=== PATIENT | male | born 1955 | race Caucasian/White ===

== ENCOUNTER 2017-08-14 18:44 | Emergency (ER) | payer BC, OTHER ==
[~2017-08-14] VITALS: Ht 177.8 cm; Wt 82.0 kg
[2017-08-14 18:49] VITALS: Ht 177.8 cm; Wt 82.0 kg
[2017-08-14] MEDS ORDERED: NITROGLYCERIN 2% 1 GM OINT PKT TD STA (19:23)
[2017-08-14] MEDS ORDERED: ASPIRIN 81 MG TAB PO STA (19:23)
[2017-08-14] MEDS ORDERED: NITROGLYCERIN (SL) 0.4 MG TAB SL PRN (19:30)
[2017-08-14 19:40] LABS: BASOPHILS % 0.4 % (0.0-2.0); EOSINOPHILS # 0.3 10^3/ul (0.0-0.5); EOSINOPHILS % 4.7 % (0.0-7.0); HEMATOCRIT 41.5 % (42.0-52.0); HEMOGLOBIN 14.2 g/dl (14.0-18.0); LYMPHOCYTES # 0.9 10^3/ul (0.8-2.9); LYMPHOCYTES % 13.1 % (15.0-51.0); MEAN CORPUSCULAR HEMOGLOBIN 32.6 pg (29.0-33.0); MEAN CORPUSCULAR HGB CONC 34.2 g/dl (32.0-37.0); MEAN CORPUSCULAR VOLUME 95.4 fl (82.0-101.0); MEAN PLATELET VOLUME 10.8 fl (7.4-10.4); MONOCYTE # 0.3 10^3/ul (0.3-0.9); NEUTROPHIL # 5.2 10^3/ul (1.6-7.5); NEUTROPHILS % 76.5 % (39.0-77.0); PLATELET COUNT 154 10^3/UL (140-415); RED BLOOD COUNT 4.35 10^6/ul (4.70-6.10); RED CELL DISTRIBUTION WIDTH 12.5 % (11.5-14.5); WHITE BLOOD COUNT 6.8 10^3/ul (4.8-10.8)
[2017-08-14 20:05] LABS: ANION GAP 11 (8-16); BLOOD UREA NITROGEN 17 mg/dl (7-20); CALCIUM 8.9 mg/dl (8.4-10.2); CARBON DIOXIDE 28 mmol/L (21-31); CHLORIDE 103 mmol/L (97-110); CREATININE 1.06 mg/dl (0.61-1.24); GLUCOSE 94 mg/dl (70-220); POTASSIUM 3.9 mmol/L (3.5-5.1); SODIUM 138 mmol/L (135-144)
[2017-08-14 20:06] LABS: D-DIMER 286.1 ng/ml (<460)
[2017-08-14] MEDS ORDERED: IPRATROPIUM (NEB) 0.5 MG/2.5 ML AMP NEB STA (20:19)
[2017-08-14] MEDS ORDERED: ALBUTEROL 0.083% (NEB) 2.5 MG/3 ML AMP NEB STA (20:19)
[2017-08-14 20:20] LABS: TROPONIN-I < 0.012 ng/ml (0.00-0.12)
[2017-08-14] MEDS ORDERED: ACETAMINOPHEN 325 MG TAB PO PRN (20:30)
[2017-08-14] MEDS ORDERED: ONDANSETRON 4 MG INJ IV PRN (20:30)
--- NOTE | 2017-08-14 21:04 | RADRPT ---
PROCEDURE: XR Chest. CLINICAL INDICATION: Chest pain. TECHNIQUE: Anterior chest x-ray. COMPARISON: None. FINDINGS: The lungs are clear. No pleural effusion identified. There is no evidence of pneumothorax. The cardiomediastinal silhouette is unremarkable. The soft tissues are normal. Osseous structures are significant for healed mid shaft right clavicle fracture. IMPRESSION: 1. No acute disease is seen in the chest. RPTAT: HLDM .Darvin Ramirez MD, MD Date Time Electronically viewed and signed by .Darvin Ramirez MD, on 08/14/2017 21:04 .M/
--- NOTE | 2017-08-14 21:31 | ERA ---
ER Documentation Chief Complaint Date/Time DATE: 08/14/17 TIME: 21:28 Chief Complaint c/o SB x 4 months. Treated for URI without relief. HPI Patient is a 62-year-old male with no medical problems who presents with chest pain shortness of breath. He said that one week ago he was not feeling well and had shortness of breath. He went to an urgent care and was given steroids and a breathing treatment and went home. Today he developed chest tightness and chest pain was concerned he would not wake up because he was worried about a heart attack. He is speaking full sentences. He went back to his urgent care but was sent to the ER for evaluation. Upon review of old medical records this is the patient's first visit to the emergency department. He does not currently have a primary doctor. ROS All systems reviewed and are negative except as per history of present illness. Allergies Allergies: Coded Allergies: No Known Allergy (Unverified , 08/14/17) PMhx/Soc Medical and Surgical Hx: pt denies Medical Hx, pt denies Surgical Hx History of Surgery: No Anesthesia Reaction: No Hx Neurological Disorder: No Hx Respiratory Disorders: No Hx Cardiac Disorders: No Hx Psychiatric Problems: No Hx Miscellaneous Medical Probl: No Hx Alcohol Use: No Hx Substance Use: No Hx Tobacco Use: No Smoking Status: Never smoker FmHx Family History: No coronary disease Physical Exam Vitals Vital Signs Date Time Temp Pulse Resp B/P Pulse Ox O2 Delivery O2 Flow Rate FiO2 08/14/17 20:41 98.1 82 19 134/85 98 Nasal Cannula 2.0 08/14/17 20:26 68 18 97 Nasal Cannula 2.0 08/14/17 19:46 98.1 80 19 145/89 96 Room Air 08/14/17 19:14 98.1 75 18 164/102 95 Room Air 08/14/17 18:49 98.1 75 18 138/89 93 Physical Exam Const: Moderate distress secondary to shortness of breath Head: Atraumatic Eyes: Normal Conjunctiva ENT: Normal External Ears, Nose and Mouth. Neck: Full range of motion..~ No meningismus. Resp: Clear to auscultation bilaterally Cardio: Regular rate and rhythm, no murmurs Abd: Soft, non tender, non distended. Normal bowel sounds Skin: No petechiae or rashes Back: No midline or flank tenderness Ext: No cyanosis, or edema Neur: Awake and alert Psych: Normal Mood and Affect Result Diagram: 08/14/17192908/14/171929 Results 24 hrs Laboratory Tests Test 08/14/17 19:30 White Blood Count 6.810^3/ul Red Blood Count 4.3510^6/ul Hemoglobin 14.2g/dl Hematocrit 41.5% Mean Corpuscular Volume 95.4fl Mean Corpuscular Hemoglobin 32.6pg Mean Corpuscular Hemoglobin Concent 34.2g/dl Red Cell Distribution Width 12.5% Platelet Count 70653^3/UL Mean Platelet Volume 10.8fl Neutrophils % 76.5% Lymphocytes % 13.1% Monocytes % 5.0% Eosinophils % 4.7% Basophils % 0.4% Nucleated Red Blood Cells % 0.0/100WBC Neutrophils # 5.210^3/ul Lymphocytes # 0.910^3/ul Monocytes # 0.310^3/ul Eosinophils # 0.310^3/ul Basophils # 0.010^3/ul Nucleated Red Blood Cells # 0.010^3/ul D-Dimer 286.10ng/ml D-Dimer Comment Sodium Level 138mmol/L Potassium Level 3.9mmol/L Chloride Level 103mmol/L Carbon Dioxide Level 28mmol/L Anion Gap 11 Blood Urea Nitrogen 17mg/dl Creatinine 1.06mg/dl Glucose Level 94mg/dl Calcium Level 8.9mg/dl Troponin I < 0.012ng/ml Current Medications Medications (Trade) Dose Ordered Sig/Stephany Route PRN Reason Start Time Stop Time Status Last Admin Dose Admin Aspirin (Aspirin) 162 mg ONCE STAT PO 08/14/17 19:23 08/14/17 19:24 DC 08/14/17 19:36 Nitroglycerin (Nitroglycerin 2% Oint) 1 inch ONCE STAT TD 08/14/17 19:23 08/14/17 19:24 DC 08/14/17 19:36 Nitroglycerin (Nitroglycerin (Sl Tab) 0.4 Mg) 1 tab Q5M UP TO 3 DOSES PRN SL CHEST PAIN 08/14/17 19:30 08/14/17 19:36 Albuterol (Proventil 0.083% (Neb)) 5 mg ONCE STAT NEB 08/14/17 20:19 08/14/17 20:20 DC 08/14/17 20:26 Ipratropium Cruger (Atrovent 0.02% (Neb)) 0.5 mg ONCE STAT NEB 08/14/17 20:19 08/14/17 20:20 DC 08/14/17 20:26 Ondansetron HCl (Zofran Inj) 4 mg ER BRIDGE PRN IV NAUSEA AND/OR VOMITING 08/14/17 20:30 08/15/17 20:29 Acetaminophen (Tylenol Tab) 650 mg ER BRIDGE PRN PO MILD PAIN/FEVER 08/14/17 20:30 08/15/17 20:29 Procedures/MDM EKG read by me: Rate/Rhythm: Regular rate and rhythm at a rate of 62 Intervals: Normal Impression: No evidence of ischemia or arrhythmia EKG #2 pending at this time. Chest x-ray negative per radiology. Smoking Cessation Therapy: Pt. was lectured for greater than 3 minutes on the health risks of continued smoking and the benefits of cessation. Patient is a 62-year-old male with smoking who presents with chest pain and shortness of breath. The patient said that 1 week ago he was not feeling well and had chest pain and shortness of breath. I am concerned for possible acute coronary syndrome. At this point I doubt pneumonia, pneumothorax, pulmonary embolism, or aortic dissection. The patient was given albuterol, Atrovent, aspirin, and nitroglycerin. The patient will be admitted to the care of the panel team for further treatment. Departure Diagnosis: Primary Impression: Shortness of breath Additional Impression: Chest pain Qualified Code: R07.9 - Chest pain, unspecified type Condition: CHRISTIAN Raygoza MD Aug 14, 2017 21:31
[2017-08-15 02:58] LABS: CREATINE KINASE 70 IU/L (23-200)
[2017-08-15 03:13] LABS: CK-MB 2.05 ng/ml (0.0-2.4); TROPONIN-I < 0.012 ng/ml (0.00-0.12)
[2017-08-15 06:01] VITALS: BP 127/95; PULSE 63; RESP 12; TEMP 98.7
== END 2017-08-15 08:17 | disposition left against medical advice (07) ==
LOC: E/R 18:44
DX: R06.02 Shortness of breath (principal); R07.9 Chest pain, unspecified
CPT/HCPCS: 36415; 71010; 80048; 82550; 82553; 84484; 85025; 85378; 93005; 94664